=== PATIENT | female | born 1945 | race Caucasian/White ===

== ENCOUNTER → 2017-02-19 | Outpatient (CLI) | payer OTHER ==
--- NOTE | 2017-02-19 12:55 | US ---
HISTORY: Left flank pain Study: Renal ultrasound Comparison: None Technique: Multiple moya scale and color flow Doppler images of the kidneys were obtained. The regio n of the urinary bladder was evaluated as well. Findings: Both kidneys are normal in size and echogenicity, the right kidney measuring 9 x 5.4 x 6.9 cm and the left measuring 10.3 x 5.3 x 7.3 cm. No definite echogenic stones, mass or hydronephrosis of either k idney is identified. The region of the urinary bladder is grossly unremarkable. IMPRESSION: Unremarkable evaluation of the kidneys. Reported By:
== END ==
LOC: RAD 11:51
PROVIDERS: ATTEND Nurse Practitioner Family
DX: R10.12 Left upper quadrant pain (principal); R10.32 Left lower quadrant pain
CPT/HCPCS: 76770